=== PATIENT | male | born 1940 | race Caucasian/White ===

== ENCOUNTER 2022-08-24 13:20 | Day surgery (SDC) | payer MEDICARE, BC ==
[~2022-08-24] VITALS: Ht 179.1 cm; Wt 82.5 kg
[2022-08-24] MEDS ORDERED: ELIQUIS 5MG PO (13:38)
[2022-08-24] MEDS ORDERED: PRINIVIL20 MG PO (13:39)
[2022-08-24] MEDS ORDERED: PEPCID 20MG TAB20 MG PO (13:40)
[2022-08-24] MEDS ORDERED: CARDIZEM HC90 MG/CAP PO (13:40)
[2022-08-24] MEDS ORDERED: VITAMINC1000TA PO (13:41)
[2022-08-24] MEDS ORDERED: SUPER B PO (13:41)
[2022-08-24] MEDS ORDERED: NATURAL E400 IU PO (13:42)
[2022-08-24] MEDS ORDERED: D3-5050000 IU PO (13:42)
[2022-08-24] MEDS ORDERED: EYE HEALTH PO (13:43)
[2022-08-24] MEDS ORDERED: MAGNESIUM ELEME30 MG PO (13:43)
[2022-08-24] MEDS ORDERED: CALCIUM 600-D 61 TAB PO (13:43)
[2022-08-24] MEDS ORDERED: MOVE FREE JOIN1 EACH PO (13:44)
[2022-08-24] MEDS ORDERED: OMEGA-3 1000 MG1 CAP PO (13:44)
[2022-08-24] MEDS ORDERED: MULTI VITAMINS1 TAB PO (13:44)
[2022-08-24] MEDS ORDERED: TURMERIC500 MG PO (13:45)
[2022-08-24] MEDS ORDERED: SAW PALMETTO 101 SGL PO (13:45)
[2022-08-24] MEDS ORDERED: [UNRECOGNIZED DRUG - CODE] PO (13:45)
[2022-08-24] MEDS ORDERED: NATURAL POTASS595 MG PO (13:46)
[2022-08-24] MEDS ORDERED: PHARMASSURE CHE30 MG PO (13:46)
[2022-08-24] MEDS ORDERED: PEPPERMINT OIL 11 ML (13:47)
[2022-08-24] MEDS ORDERED: GINGER500 MG PO (13:47)
[2022-08-24] MEDS ORDERED: BALANCE OF NATURE (13:47)
[2022-08-24 13:48] VITALS: BP 152/61; PULSE 66; TEMP 97.7
[2022-08-24] MEDS ORDERED: CARAFATE 1GM1 G PO (13:48)
[2022-08-24 15:20] VITALS: BP 114/46; PULSE 77; TEMP 97.9
[2022-08-24 15:30] VITALS: BP 103/81; PULSE 77
[2022-08-24 15:45] VITALS: BP 90/67; PULSE 70
--- NOTE | 2022-08-24 16:15 | NUR ---
1520 Pt returns from endo procedure via cart and RN assist to [facility]. Pt ambulates from cart to recliner with RN assist. Monitors on and alarms set. Call light within reach. Report received from KYLEE Naylor. Pt alert and oriented. Pt requests water and applesauce. Pt denies any pain or nausea. 1530 Pt taking food and drink well. No complications noted. 1545 Discharge instructions given to pt and pt's . All questions answered to their satisfaction. Handed to pt are a thank you card and discharge information. 1615 Pt transferred out of the hospital via wheelchair and KYLEE Yip assist, to private vehicle driven by pt's .
== END 2022-08-24 16:15 | disposition home or self-care (01) ==
LOC: SDCO 13:20
DX: K22.2 Esophageal obstruction (principal); K44.9 Diaphragmatic hernia without obstruction or gangrene; K21.00 Gastro-esophageal reflux disease with esophagitis, without bleeding; I10 Essential (primary) hypertension; Z79.899 Other long term (current) drug therapy
CPT/HCPCS: C1726; J2704; J7030